=== PATIENT | female | born 1950 | race Caucasian/White ===

== ENCOUNTER 2020-05-25 06:58 | Emergency (ER) | payer MEDICARE, OTHER, SELFPAY ==
[2020-05-25 06:58] VITALS: BP 166/90; PULSE 99; RESP 16; TEMP 36.8; O2SAT 100
--- NOTE | 2020-05-25 07:09 | CT_ITS ---
HISTORY: RIGHT FLANK PAIN X2 DAYS ADDITIONAL HISTORY: None provided. EXAMINATION/TECHNIQUE: CT Abdomen And Pelvis W/O Contrast Injection Enteric contrast was not given. Number of images including paperwork: 449. A radiation dose optimization technique was used for this scan. COMPARISON: None FINDINGS: Evaluation of the abdominopelvic organs is limited in the absence of contrast. LOWER THORAX: No consolidation or pleural effusion. Small to moderate sized hiatal hernia. LIVER: No concerning focal lesion. Mildly decreased hepatic density suggestive of steatosis. GALLBLADDER: No radiopaque calculi. BILE DUCTS: No significant biliary dilatation. SPLEEN: Unremarkable. PANCREAS: Mildly atrophic. ADRENAL GLANDS: Unremarkable. KIDNEYS/URETERS: Nonobstructing 2-3 mm left renal calculi. No ureteral calculus or hydronephrosis. BOWEL: No bowel obstruction. No significant bowel wall thickening. No localized inflammation. Colonic diverticulosis. Moderate amount of colonic stool. APPENDIX: No evidence of appendicitis. FREE FLUID: No significant free fluid. FREE AIR: None. LYMPH NODES: No pathologic appearing adenopathy. PERITONEUM, RETROPERITONEUM AND MESENTERY: Otherwise unremarkable. VASCULATURE: 7 mm densely calcified splenic artery aneurysm. ABDOMINAL WALL: Unremarkable. PELVIS: Unremarkable bladder, uterus and adnexa. No pelvic mass. OSSEOUS AND SOFT TISSUE STRUCTURES: No acute skeletal findings. Degenerative changes. CT/Abdomen/Pelvis without Cont IMPRESSION: No acute abdominopelvic abnormality. Nonobstructing left renal calculi. Colonic diverticulosis. Individualized dose optimization techniques were used for this CT. at 0741 Reported and signed by: Carolann Abreu MD Electronically Signed: Carolann Abreu MD at 7:41 EST Tel , Service support ,
--- NOTE | 2020-05-25 07:12 | ED.DCSUM_ITS ---
History of Present Illness Chief Complaint: Flank Pain Informant: Patient Narrative: This is a 70-year-old female presenting with a chief complaint of a sharp stabbing right lower quadrant pain that will radiate to the right flank. She has had nausea but none current. Symptoms began 4 days ago. No change with eating. She notes she believes she has had some blood in her urine. No dysuria. Normal bowel movements. No fevers or chills. She states that the pain has gotten better. This morning when she got up her blood pressure was around 190 systolic which concerned her. She was able to sleep last night and has been able to find some position of comfort. No prior abdominal surgeries. She denies any significant medical problems other than glaucoma. Past Medical History - Allergies and Home Meds Allergies/Adverse Reactions: Allergies No Known Allergies Allergy (Verified 05/25/20 07:00) Primary Care Physician: Yue Mejía MD [Primary Care Provider] - Past Medical History: - - History of breast cancer and glaucoma Surgical History: - - Lumpectomy Smoking Status: Never smoker Drugs: None Review of Systems General: Denies: Chills, Fever, Sweats Eyes: Denies: Visual changes - bilaterally, Diplopia ENT: Denies: Rhinorrhea, Sore throat Cardiovascular: Denies: Chest pain, Palpitations Respiratory: Denies: Dyspnea, Cough, Dyspnea on exertion Gastrointestinal: Reports: Abdominal pain, Nausea. Denies: Vomiting, Diarrhea, Melena, Hematochezia Genitourinary: Reports: Hematuria, - - Right flank pain. Denies: Dysuria, Frequency Musculoskeletal: Denies: Back pain, Extremity Pain Skin: Denies: Rash, Wounds Neurological: Denies: Headache, Weakness, Numbness Physical Exam Vital Signs/Narrative: Vital Signs Temp Pulse Resp BP Pulse Ox 05/25/20 06:58 98.2 F 99 16 166/90 H 100 Inital Vital Signs reviewed: Yes General: Well nourished, Well developed, No Acute Distress Head: Normocephalic, Atraumatic Eyes: Perrl, EOMI ENT: Moist mucous membranes, No rhinorrhea Neck: Supple, Nontender Cardiovascular: Regular rate, Regular rhythm, No murmurs Respiratory: No distress, CTA bilaterally, Chest nontender Abdomen: Soft, Nontender, Nondistended, Normal bowel sounds Back: Nontender, Normal Inspection Extremities: Nontender, No edema Skin: Normal color, No rash Neurological: Alert, Oriented x3, Cranial nerves II-XII grossly intact, Normal Strength, Normal Sensation Psychological: Normal affect, Normal Mood Diagnostic/Tx/Re-eval Clinical Impression(s) from Imaging Studies Abdomen/Pelvis CT 05/25/20 07:09 IMPRESSION: No acute abdominopelvic abnormality. Nonobstructing left renal calculi. Colonic diverticulosis. Individualized dose optimization techniques were used for this CT. at 0741 Reported and signed by: Carolann Abreu MD Electronically Signed: Carolann Abreu MD at 7:41 EST Tel , Service support , Laboratory Last Values WBC 6.8 K/mm3 (4.4-11.0) 05/25/20 07:00 RBC 4.94 M/mm3 (4.2-5.4) 05/25/20 07:00 Hgb 16.1 g/dL (12.0-15.0) H 05/25/20 07:00 Hct 45.3 % (37-47) 05/25/20 07:00 MCV 91.7 fL (81-99) 05/25/20 07:00 MCH 32.6 pg (27.0-32.0) H 05/25/20 07:00 MCHC 35.5 g/dL (32-36) 05/25/20 07:00 RDW Std Deviation 40.0 fl (35.1-43.9) 05/25/20 07:00 RDW Coeff of Mabel 12.0 % (11.6-14.6) 05/25/20 07:00 Plt Count 226 K/mm3 (150-450) 05/25/20 07:00 MPV 11.2 fl (6.2-12.0) 05/25/20 07:00 Immature Gran % (Auto) 0.300 % (0.0-0.9) 05/25/20 07:00 Neut % (Auto) 56.0 % (47-70) 05/25/20 07:00 Lymph % (Auto) 28.7 % (19-41) 05/25/20 07:00 Vermilion % (Auto) 8.9 % (0-10) 05/25/20 07:00 Eos % (Auto) 5.2 % (0-5) H 05/25/20 07:00 Baso % (Auto) 0.9 % (0-1) 05/25/20 07:00 Absolute Neuts (auto) 3.8 X10^3/uL (2.0-7.7) 05/25/20 07:00 Absolute Lymphs (auto) 1.94 X10^3/uL (0.83-4.51) 05/25/20 07:00 Nucleated RBC % 0 % (0-5) 05/25/20 07:00 Sodium 139 mmol/L (136-145) 05/25/20 07:00 Potassium 3.8 mmol/L (3.5-5.1) 05/25/20 07:00 Chloride 106 mmol/L (98-107) 05/25/20 07:00 Carbon Dioxide 25.0 mmol/L (21.0-32.0) 05/25/20 07:00 Anion Gap 8 (5-15) 05/25/20 07:00 BUN 12 mg/dL (7-18) 05/25/20 07:00 Creatinine 1.17 mg/dL (0.55-1.02) H 05/25/20 07:00 Estim Creat Clear Calc 36.48 ml/min 05/25/20 07:00 Est GFR (MDRD) Af Amer 59 mL/min (>60) L 05/25/20 07:00 Est GFR (MDRD) Non-Af 48 mL/min (>60) L 05/25/20 07:00 BUN/Creatinine Ratio 10.3 RATIO (10-20) 05/25/20 07:00 Glucose 112 mg/dL (74-106) H 05/25/20 07:00 Calcium 9.1 mg/dL (8.5-10.1) 05/25/20 07:00 Total Bilirubin 0.90 mg/dL (0.20-1.00) 05/25/20 07:00 AST 49 U/L (15-37) H 05/25/20 07:00 ALT 64 U/L (13-56) H 05/25/20 07:00 Alkaline Phosphatase 66 U/L (45-117) 05/25/20 07:00 Total Protein 7.8 g/dL (6.4-8.2) 05/25/20 07:00 Albumin 4.0 g/dL (3.2-5.0) 05/25/20 07:00 Globulin 3.8 g/dL (2.2-4.2) 05/25/20 07:00 Albumin/Globulin Ratio 1.1 RATIO (0.9-2.4) 05/25/20 07:00 Urine Color Yellow (Yellow) 05/25/20 07:19 Urine Clarity Sl. Cloudy (Clear) 05/25/20 07:19 Urine pH 6.5 (5.0 - 8.0) 05/25/20 07:19 Ur Specific Abell 1.015 (1.002-1.030) 05/25/20 07:19 Urine Protein 15 mg/dl (Negative) H 05/25/20 07:19 Urine Glucose (UA) Normal mg/dl (Normal) 05/25/20 07:19 Urine Ketones Negative mg/dl (Negative) 05/25/20 07:19 Urine Occult Blood Negative /ul (Negative) 05/25/20 07:19 Urine Nitrite Negative (Negative) 05/25/20 07:19 Urine Bilirubin Negative mg/dL (Negative) 05/25/20 07:19 Urine Urobilinogen Normal mg/dl (Normal) 05/25/20 07:19 Ur Leukocyte Esterase 500 /ul (Negative) H 05/25/20 07:19 Urine RBC 0 SEEN /hpf (0-5) 05/25/20 07:19 Urine WBC 25-50 SEEN /hpf (0-5) 05/25/20 07:19 Ur Squamous Epith Cells 0-5 SEEN /hpf (5-10) 05/25/20 07:19 Urine Bacteria 1+ /hpf (None Seen) 05/25/20 07:19 Urine Mucus 0 SEEN /hpf (<or=2+) 05/25/20 07:19 - Medical Decision Making ASIC blood work showed a creatinine of 1.17. Urinalysis showed 25-50 white cells and 1+ bacteria leukocyte esterase positive. Nitrate negative. In reviewing the results with the patient she now informs me that she has been taking Bactrim since Friday. She states that she had extra pills from a prior UTI. She certainly has renal calculi on the left it is possible that she was passing a stone this week and is now resolved. Also possible that she had significant more infection on Friday when she started her Bactrim and now the urine specimen is getting better. She still has what appears to be about 4 days of the antibiotic Bactrim left. I am going to have her go ahead and finish that. We will do a urine culture. Patient to follow-up with her primary care doctor. As far as her elevated blood pressure is come down and she is asymptomatic from that. I think that is something that can be watched and managed outpatient agudelo. ED Disposition - Plan for ED Patient: Disposition: Home or Assisted Living Diagnosis: Elevated blood pressure reading, Right flank pain, UTI (urinary tract infection) Instructions: ED Flank Pain, Uncertain Cause Referrals: Yue Mejía MD [Primary Care Provider] - 5-7 Days Additional Instructions: Finish out your Bactrim antibiotic.
[2020-05-25 07:20] LABS: Absolute Lymphocyte Count 1.94 X10^3/uL (0.83-4.51); Absolute Neutrophil Count 3.8 X10^3/uL (2.0-7.7); Basophil# 0.06 X10^3/uL; Basophil% 0.9 % (0-1); Eosinophil# 0.35 X10^3/uL; Eosinophils% 5.2 % (0-5); Hematocrit 45.3 % (37-47); Hemoglobin 16.1 g/dL (12.0-15.0); Lymphocyte # 1.94 X10^3/ul (4.0); Lymphocyte % 28.7 % (19-41); Mean Corp Hgb Conc 35.5 g/dL (32-36); Mean Corpuscular Hgb 32.6 pg (27.0-32.0); Mean Corpuscular Volume 91.7 fL (81-99); Mean Platelet Vol. 11.2 fl (6.2-12.0); Monocyte% 8.9 % (0-10); NRBC Flagged by Analyzer 0 % (0-5); Neutrophil # 3.78 X10^3/uL (2.7-7.7); Platelet Count 226 K/mm3 (150-450); Red Blood Count 4.94 M/mm3 (4.2-5.4); White Blood Count 6.8 K/mm3 (4.4-11.0)
[2020-05-25 07:24] LABS: Mucous, Urine 0 SEEN /hpf (<or=2+); Red Blood Cells-Urine 0 SEEN /hpf (0-5)
[2020-05-25 07:36] LABS: ALB/GLOB Ratio 1.1 RATIO (0.9-2.4); AST(SGOT) 49 U/L (15-37); Alanine Aminotransfer ALT/SGPT 64 U/L (13-56); Alkaline Phosphatase 66 U/L (45-117); Anion Gap 8 (5-15); BUN 12 mg/dL (7-18); BUN/Creat Ratio 10.3 RATIO (10-20); Calcium,Total 9.1 mg/dL (8.5-10.1); Chloride 106 mmol/L (98-107); Creatinine, Serum 1.17 mg/dL (0.55-1.02); EST Glomerular Filtration Rate 48 mL/min (>60); Est Glom Filt Rate - Afr Amer 59 mL/min (>60); Estimated Creatinine Clearance 36.48 ml/min; Globulin 3.8 g/dL (2.2-4.2); Glucose 112 mg/dL (74-106); Potassium 3.8 mmol/L (3.5-5.1); Protein, Total 7.8 g/dL (6.4-8.2); Sodium Level 139 mmol/L (136-145)
[2020-05-25 07:44] LABS: Color, Urine Yellow (Yellow); Glucose, Dipstick Normal (Normal); Ketone-Dipstick Negative (Negative); Leukocyte Esterase-Dipstick 500 /ul (Negative); Nitrite-Dipstick Negative (Negative); Occult Blood-Urine Negative /ul (Negative); Protein-Dipstick 15 mg/dl (Negative); Specific Gravity, Urine 1.015 (1.002-1.030); Urine Bilirubin Dipstick Negative (Negative); Urine Clarity Sl. Cloudy (Clear); Urine Urobilinogen Normal (Normal); Urine pH 6.5 (5.0 - 8.0)
[2020-05-25 07:58] LABS: Bacteria 1+ /hpf (None Seen); Squamous Epithelial Cells - UA 0-5 SEEN /hpf (5-10); White Blood Cells 25-50 SEEN /hpf (0-5)
[2020-05-25 08:27] VITALS: BP 119/63; PULSE 72; RESP 15; O2SAT 98
== END 2020-05-25 08:28 | disposition home or self-care (01) ==
PROVIDERS: Emergency Provider Emergency Medicine; PCP Internal Medicine
DX: R03.0 Elevated blood-pressure reading, without diagnosis of hypertension (principal); N39.0 Urinary tract infection, site not specified; N20.0 Calculus of kidney; K57.30 Diverticulosis of large intestine without perforation or abscess without bleeding; Z85.3 Personal history of malignant neoplasm of breast; H40.9 Unspecified glaucoma
CPT/HCPCS: 74176; 80053; 81001; 85025; 87077; 87086; 87088; 99283

== ENCOUNTER → 2021-04-12 11:22 | Outpatient (CLI) | payer MEDICARE, OTHER, SELFPAY ==
--- NOTE | 2021-04-12 16:48 | STRESSREP ---
Stress Test Report Exercise stress test. 71-year-old lady with a history of chest pain. Stress protocol: Resting EKG demonstrates normal sinus rhythm with a rate of 85 bpm normal intervals are noted resting blood pressure is 138/80 mmHg. The patient exercised according to the regular Lucho protocol for total duration of 7 minutes. Patient completed 1 minute into stage III of the Lucho protocol. The maximum heart rate attained was 153 bpm which was 103% of max infected heart rate the maximum workload was 10 metabolic equivalents. At rest there were no ST or T wave changes noted to suggest ischemia and at peak exercise upsloping ST changes were noted with did not meet the criteria for ischemia. The patient experienced mild shortness of breath and mild chest pressure at peak exercise with dissipation on resting. The peak blood pressure was 180/84 mmHg. Conclusion: Exercise stress test with no EKG criteria for ischemia at a high workload. No arrhythmias noted. No definitive angina noted.
== END ==
PROVIDERS: PCP Internal Medicine; Referring Provider Internal Medicine; Visit Provider Internal Medicine
DX: R06.00 Dyspnea, unspecified (principal); R06.02 Shortness of breath
CPT/HCPCS: 93017

== ENCOUNTER → 2023-04-29 | Outpatient (CLI) | payer MEDICARE, OTHER, SELFPAY ==
[2023-04-29 15:43] LABS: Absolute Lymphocyte Count 1.97 X10^3/uL (0.83-4.51); Absolute Neutrophil Count 4.9 X10^3/uL (2.0-7.7); Basophil# 0.05 X10^3/uL; Basophil% 0.6 % (0-1); Eosinophil# 0.18 X10^3/uL; Eosinophils% 2.3 % (0-5); Hematocrit 42.4 % (37-47); Hemoglobin 14.2 g/dL (12.0-15.0); Lymphocyte # 1.97 X10^3/ul (0.83-4.51); Lymphocyte % 25.4 % (19-41); Mean Corp Hgb Conc 33.5 g/dL (32-36); Mean Corpuscular Hgb 30.5 pg (27.0-32.0); Monocyte# 0.62 X10^3/uL; NRBC Flagged by Analyzer 0 % (0-5); Neutrophil # 4.93 X10^3/uL (2.7-7.7); Neutrophil % 63.4 % (47-70); Platelet Count 226 K/mm3 (150-450); RBC Distribution Width CV 12.7 % (11.6-14.6); RBC Distribution Width SD 41.8 fl (35.1-43.9); Red Blood Count 4.66 M/mm3 (4.2-5.4); White Blood Count 7.8 K/mm3 (4.4-11.0)
[2023-04-29 16:00] LABS: Albumin, Serum 3.9 g/dL (3.2-5.0); Anion Gap 5 (5-15); BUN 16 mg/dL (7-18); BUN/Creat Ratio 19.2 RATIO (10-20); Calcium,Total 9.2 mg/dL (8.5-10.1); Chloride 106 mmol/L (98-107); Creatinine, Serum 0.83 mg/dL (0.55-1.02); EST Glomerular Filtration Rate 71 mL/min (>60); Est Glom Filt Rate - Afr Amer 86 mL/min (>60); Glucose 100 mg/dL (74-106); Potassium 3.8 mmol/L (3.5-5.1); Sodium Level 139 mmol/L (136-145)
== END | disposition home or self-care (01) ==
LOC: LAB 13:55
PROVIDERS: PCP Internal Medicine; Referring Provider Physician Assistant Surgical; Visit Provider Physician Assistant Surgical
DX: Z01.810 Encounter for preprocedural cardiovascular examination (principal); M17.11 Unilateral primary osteoarthritis, right knee; Z01.818 Encounter for other preprocedural examination
CPT/HCPCS: 36415; 80048; 82040; 85025

== ENCOUNTER → 2023-04-30 | Outpatient (CLI) | payer MEDICARE, OTHER, SELFPAY ==
--- NOTE | 2023-04-30 12:29 | EKG12_ITS ---
Test Reason : PRE OP Blood Pressure : / mmHG Vent. Rate : 073 BPM Atrial Rate : 073 BPM P-R Int : 142 ms QRS Dur : 086 ms QT Int : 362 ms P-R-T Axes : 030 -01 -01 degrees QTc Int : 398 ms Normal sinus rhythm Normal ECG Confirmed by CARLOS RODRIGUEZ, JAY ([id number]), assistant production editor PEDRO GOLD ([id number]) on 05/07/2023 11:52:51 AM Referred By: Chas Martinez Confirmed By:JAY GONZALEZ MD
--- NOTE | 2023-04-30 12:31 | CT_ITS ---
CT RIGHT LOWER EXTREMITY WITH 3-D IMAGING CLINICAL INDICATION: PRIMARY OSTEOARTHRITIS *MARILOU PROTOCOL* TECHNIQUE: Axial CT images of the right lower extremity (including right hip, right knee, and right ankle) was performed without IV contrast material. Coronal and sagittal reformats were provided. RADIATION DOSAGE (If Supplied By Facility): CTDIvol = ( 18.76 ) mGy, DLP = ( 1152.27 ) mGycm COMPARISON: No relevant prior comparison study available. FINDINGS: Bones: Normal right hip joint. There is pubic symphysis arthrosis. There is tricompartment degenerative arthrosis, most severe in the medial femorotibial compartment where there is severe joint space narrowing, marginal osteophyte formation, and subchondral sclerosis/cyst formation. There is mild talonavicular arthrosis with mild dorsal osteophyte formation. Osseous structures are normal without evidence of fracture or dislocation. No lytic or blastic osseous masses. Soft Tissues: There is a 7 mm calcified loose body at the posterolateral femorotibial joint recess (axial series 2 image 337). There is a 1.2 cm loose body located posterior to the proximal tibiofibular joint (coronal reformat series 604 images 45-46). There is a small knee joint effusion. The deep soft tissue structures are unremarkable. The superficial soft tissues are unremarkable without evidence of edema, hematoma, or foreign body. CT/Extremity Lower without Contra IMPRESSION: Tricompartment degenerative arthrosis, most severe in the medial femorotibial compartment. Small knee joint effusion, with small loose bodies. Electronically Signed: Lauri Cuevas MD at 15:35 EST ,
== END | disposition home or self-care (01) ==
PROVIDERS: PCP Internal Medicine; Referring Provider Physician Assistant Surgical; Visit Provider Physician Assistant Surgical
DX: Z01.810 Encounter for preprocedural cardiovascular examination (principal); M17.11 Unilateral primary osteoarthritis, right knee; M25.561 Pain in right knee
CPT/HCPCS: 73700; 93005